=== PATIENT | female | born 1975 | race Caucasian/White ===

== ENCOUNTER 2020-01-29 19:50 | Emergency (ER) | payer OTHER ==
[~2020-01-29] VITALS: Ht 167.6 cm; Wt 78.5 kg
[2020-01-29 19:53] VITALS: BP 154/86
--- NOTE | 2020-01-29 20:33 | NUR ---
AT BEDSIDE FOR EVALUATION.
--- NOTE | 2020-01-29 20:50 | NUR ---
Patient discharged to home in stable condition. Written and verbal after care instructions given. Patient verbalizes understanding of instruction.
== END 2020-01-29 20:54 | disposition home or self-care (01) ==
LOC: ER 19:55
DX: H53.8 Other visual disturbances (principal); Z90.89 Acquired absence of other organs; Z88.0 Allergy status to penicillin